=== PATIENT | female | born 1970 | race Two or more races ===

== ENCOUNTER 2017-08-24 15:20 | Outpatient (CLI) | payer BC ==
--- NOTE | 2017-08-24 17:07 | Diagnostic Imaging Report ---
Indication: Chest pain and shortness of breath Technique: 2 views of the chest Comparison: None Findings: Lungs and pleural spaces are clear. The heart size is normal. The bones are unremarkable. No significant interim change. Impression: Negative
== END 2017-08-24 17:20 | disposition home or self-care (01) ==
LOC: RAD 15:20
DX: R05 Cough (principal); R07.9 Chest pain, unspecified; R06.00 Dyspnea, unspecified
CPT/HCPCS: 71046